=== PATIENT | female | born 1975 | race Caucasian/White ===

== ENCOUNTER 2016-07-23 17:54 | Inpatient (IN) | payer MEDICARE, MEDICAID ==
[~2016-07-23] VITALS: Ht 162.5 cm; Wt 75.5 kg
--- NOTE | ~2016-07-23 | ST ---
[place], [place] EXERCISE STRESS TEST REPORT NAME: MAY CARRILLO [facility] #: [id number] UNIT #: [id number] ROOM: 525 DOCTOR: TARSHA ORR,ANGELA BIRTHDATE: [birth year] DOS: 07/24/2016 EXERCISE NUCLEAR STRESS TEST REASON FOR TEST: Evaluation of chest pain. PHYSICAL EXAMINATION: NECK: Supple. LUNGS: Clear anteriorly. HEART: Regular rhythm. PROTOCOL: Kailash protocol. Total stress time 6 minutes and 16 seconds. Maximum heart rate of 166 is in 92% of target heart rate. Total METs 7.2 METs. Strong treadmill score +6, peak blood pressure 165/88. SYMPTOMS: The patient is chest pain free. EKG: Resting EKG sinus rhythm. Stress EKG showed no ischemia, no arrhythmias. CONCLUSION: Clinically, the patient is chest pain free. EKG nonischemic. POST-STRESS COMPLICATIONS: None. ANGELA WILLINGHAM MD CM:STRESS:EXERCISE STRESS TEST REPORT [id number] ANGELA WILLINGHAM MD
--- NOTE | ~2016-07-23 | CON ---
[place], [place] REPORT OF CONSULTATION NAME: MAY CARRILLO [facility] #: [id number] UNIT #: [id number] ROOM: 525 DOCTOR: ANGELA WILLINGHAM MD BIRTHDATE: [birth year] DOS: 07/24/2016 REASON FOR CONSULTATION: Chest pain. HISTORY OF PRESENT ILLNESS: The patient is a 41-year-old patient with history of hypertension, who presented to the Emergency Room for chest pain. The patient describes this as a sharp chest pain at rest, which was left side of the chest. It started a few hours before she came to the Emergency Room. This pain did radiate to her left arm and also developed some left arm numbness and tingling. She has some shortness of breath and lightheadedness with this chest pain. This pain did not get worse with , but however, this pain became progressive with rest and she tried massage as well as pouring some cold water on her face, which did not help her pain. She came to the Emergency Room, was admitted to the hospital and conformal pad former was consulted for further recommendations. She denies any fever and chills. No nausea, vomiting, or headaches. No fever and chills. No diarrhea or constipation. No hematuria, no dysuria. No cough or hemoptysis. No blurred vision, double vision. No joint tenderness or swelling. REVIEW OF SYSTEMS: Review of the 8 systems negative except as mentioned above. PAST MEDICAL HISTORY: 1. Hypertension. 2. Anxiety. 3. Overweight. 4. Schizophrenia. 5. Bipolar. PAST SURGICAL HISTORY: History of partial hysterectomy, appendicectomy, and tonsillectomy. SOCIAL HISTORY: The patient does drink alcohol occasionally. Does not use illicit drugs and does smoke 1 pack a day. FAMILY HISTORY: Father from heart attack at age of 53. Mother had a stroke at the age of 60. ALLERGIES: No known drug allergies. HOME MEDICATIONS: Reviewed. PHYSICAL EXAMINATION: VITAL SIGNS: Blood pressure 112/68, pulse 73, respiration is 20, and weight is 75.4 kilos. BMI 28.6. GENERAL: Alert, comfortable, in no acute distress. HEENT: Pupils are round and equal. No jaundice. Tongue was moist and pharynx was clear. NECK: Supple. No distended neck veins. No carotid bruit. CHEST: Symmetrical, nontender. LUNGS: Clear to auscultation bilaterally. [place], [place] REPORT OF CON[facility]ULTATION [facility] [id number] UNIT #: [id number] ROOM: [facility] DOCTOR: TARSHA ORR,ANGELA BIRTHDATE: [birth year] HEART: Regular rhythm. No S3. No palpable thrills. ABDOMEN: Benign, nontender. Bowel sounds normal. EXTREMITIES: Showed no edema. Distal pulses are palpable. SKIN: Warm and dry. No cyanosis, no clubbing. NEUROLOGIC: The patient is alert and oriented. No focal neurologic deficit. GENITOURINARY: Deferred. RECTAL: Deferred. REVIEW OF THE DIAGNOSTIC TESTS: EKG rhythm strips and labs reviewed. EKG showed sinus rhythm. No acute ST changes. IMPRESSION: 1. Chest pain, atypical. 2. Mild decreased dyslipidemia. 3. History of hypertension. 4. Mild shortness of breath. 5. Anxiety. 6. Left-sided facial pain, possibly temporomandibular joint syndrome. 7. Tobacco use, smoking. RECOMMENDATIONS: 1. Continue current medication as the patient counseled to quit smoking as well as exercise and weight loss. 2. Treadmill stress test today for evaluation of chest pains and the treadmill is unremarkable. 3. She has no further chest pain. She can be discharged home today. ANGELA WILLINGHAM MD CM:CONSTR:REPORT OF CONSULTATION [id number] 07/25/16 0241 interface
[~2016-07-23 17:54] MED LIST: ADDERALL30 MG PO; AMBIEN10 M1 PO; BUSPIRONE10 MG PO; CATAPRES0.1 MG PO; CELEXA10 MG PO; EFFEXOR XR37.5 M2 PO; EFFEXOR-XR150 MG PO; KLONOPIN1 MG PO; LISINOPRIL10 MG PO; MOTRIN800 MG PO; ULTRAM50 MG PO; VISTARIL25 M1 PO; XANAX1 MG PO
[2016-07-23 18:04] VITALS: BP 147/83
[2016-07-23 18:09] LABS: BASO % 0.5 % (0.0-1.0); EOS # 0.2 10*3/uL (0.0-0.4); HEMOGLOBIN 14.4 g/dl (12.0-16.0); LYMPH # 2.6 10*3/uL (1.3-4.4); LYMPH % 42.3 % (27.0-41.0); MEAN CELL VOLUME 86.7 fl (81.0-99.0); MEAN CORPUSCULAR HGB CONC 33.5 g/dl (33.0-37.0); MONO # 0.3 10*3/uL (0.1-1.0); MONO % 4.3 % (3.0-9.0); NEUT % 49.7 % (47.0-73.0); PLATELET COUNT AUTOMATED 188 10*3/uL (130-400); RED BLOOD COUNT 4.96 10*6/uL (4.10-5.10); RED CELL DISTRI WIDTH 12.8 % (0-14.5); WHITE BLOOD COUNT 6.1 10*3/uL (4.8-10.8)
[2016-07-23 18:20] LABS: INTERNATIONAL NORM RATIO 0.9 (2.0-3.5); PROTHROMBIN TIME 9.8 SECONDS (9.0-12.4)
[2016-07-23 18:28] LABS: ALBUMIN 3.5 gm/dl (3.1-4.5); ALKALINE PHOSPHATASE 70 U/L (45-117); BILIRUBIN, TOTAL 0.4 mg/dl (0.2-1.0); BUN 8 mg/dl (7-24); CARBON DIOXIDE 23 mmol/L (21-32); CHLORIDE 106 mmol/L (98-107); EST GLOM FILT AFRICAN AMERICAN > 60 ml/min; GLUCOSE 97 mg/dL (65-99); MAGNESIUM 2.1 mg/dL (1.5-2.1); POTASSIUM 3.6 mmol/L (3.5-5.1); SGOT/AST 18 IU/L (3-35); SGPT/ALT 23 U/L (12-78); SODIUM 141 mmol/L (136-145); TOTAL PROTEIN 7.3 gm/dL (6.4-8.2)
[2016-07-23 18:29] LABS: TROPONIN I < 0.015 ng/ml (<0.045)
[2016-07-23 19:15] VITALS: BP 123/81
[2016-07-23 19:47] VITALS: BP 126/83
[2016-07-23 20:38] VITALS: BP 122/83
[2016-07-23 21:39] VITALS: BP 128/92
[2016-07-24 00:13] VITALS: BP 131/86
[2016-07-24 00:34] LABS: CKMB < 0.5 ng/ml (0.5-3.6); TROPONIN I < 0.015 ng/ml (<0.045)
[2016-07-24 04:06] VITALS: BP 124/72
[2016-07-24 06:37] LABS: BASO % 0.5 % (0.0-1.0); EOS # 0.2 10*3/uL (0.0-0.4); EOS % 3.6 % (1.0-4.0); HEMATOCRIT 39.9 % (37.0-47.0); HEMOGLOBIN 13.4 g/dl (12.0-16.0); LYMPH # 2.5 10*3/uL (1.3-4.4); LYMPH % 41.2 % (27.0-41.0); MEAN CELL VOLUME 86.9 fl (81.0-99.0); MEAN CORPUSCULAR HGB 29.2 pg (27.0-31.0); MEAN CORPUSCULAR HGB CONC 33.6 g/dl (33.0-37.0); MEAN PLATELET VOLUME 10.1 fl (9.6-12.3); MONO # 0.3 10*3/uL (0.1-1.0); MONO % 4.7 % (3.0-9.0); NEUT % 49.8 % (47.0-73.0); PLATELET COUNT AUTOMATED 174 10*3/uL (130-400); RED BLOOD COUNT 4.59 10*6/uL (4.10-5.10); RED CELL DISTRI WIDTH 12.9 % (0-14.5); WHITE BLOOD COUNT 6.1 10*3/uL (4.8-10.8)
[2016-07-24 06:54] LABS: HEMOGLOBIN A1c 4.7 % (4.8-5.6)
[2016-07-24 07:11] LABS: BUN 8 mg/dl (7-24); CARBON DIOXIDE 27 mmol/L (21-32); CHLORIDE 108 mmol/L (98-107); CHOLESTEROL 164 mg/dL (<200); EST GLOM FILT AFRICAN AMERICAN > 60 ml/min; FREE T4 1.06 ng/dl (0.76-1.46); GLUCOSE 91 mg/dL (65-99); HDL CHOLESTEROL 67 mg/dl (40-60); LDL CHOLESTEROL 77 mg/dL (9-159); MAGNESIUM 2.3 mg/dL (1.5-2.1); PHOSPHOROUS 3.2 mg/dL (2.5-4.9); POTASSIUM 4.3 mmol/L (3.5-5.1); SODIUM 144 mmol/L (136-145); TRIGLYCERIDES 101 mg/dl (<150); VLDL CHOLESTEROL 20 mg/dL (6-40)
[2016-07-24 07:28] LABS: CKMB < 0.5 ng/ml (0.5-3.6); TROPONIN I < 0.015 ng/ml (<0.045)
[2016-07-24 07:34] LABS: VITAMIN D, 25-HYDROXY 12.9 ng/mL (30-100)
[2016-07-24 07:35] LABS: FOLIC ACID 9.05 ng/mL (>5.38)
[2016-07-24 08:00] VITALS: BP 112/68; BP 119/72
[2016-07-24 11:50] VITALS: BP 115/76
== END 2016-07-24 14:20 | disposition home or self-care (01) | DRG 313 ==
LOC: ED 17:54 → EDHOLD 18:59 → 5E 18:59
PROVIDERS: Emergency Medicine; Internal Medicine
DX: R07.89 Other chest pain (principal); E83.41 Hypermagnesemia; I10 Essential (primary) hypertension; F20.9 Schizophrenia, unspecified; F41.9 Anxiety disorder, unspecified; F90.9 Attention-deficit hyperactivity disorder, unspecified type; F31.9 Bipolar disorder, unspecified; E55.9 Vitamin D deficiency, unspecified; F17.210 Nicotine dependence, cigarettes, uncomplicated; Z71.6 Tobacco abuse counseling; E66.3 Overweight; R51 Headache

== ENCOUNTER → 2016-07-28 | Outpatient (CLI) | payer MEDICARE, MEDICAID | END | disposition home or self-care (01) | LOC: RESCLI 02:03 | DX: I10 Essential (primary) hypertension (principal); F41.9 Anxiety disorder, unspecified; F33.9 Major depressive disorder, recurrent, unspecified; Z72.0 Tobacco use ==

== ENCOUNTER 2016-09-12 13:17 | Emergency (ER) | payer MEDICARE, MEDICAID ==
[~2016-09-12] VITALS: Ht 162.5 cm; Wt 74.8 kg
[2016-09-12] MEDS ORDERED: PRINIVIL20 M1 PO (13:32)
[2016-09-12] MEDS ORDERED: EFFEXOR XR37.5 MG PO (13:32)
[2016-09-12] MEDS ORDERED: NAPROSYN500 MG PO (14:01)
[2016-09-12] MEDS ORDERED: AUGMENTIN 875875 MG PO (14:01)
== END 2016-09-12 14:27 | disposition home or self-care (01) ==
LOC: ED 13:17
DX: S41.151A Open bite of right upper arm, initial encounter (principal); S51.851A Open bite of right forearm, initial encounter; L03.113 Cellulitis of right upper limb; F90.9 Attention-deficit hyperactivity disorder, unspecified type; F31.9 Bipolar disorder, unspecified; I10 Essential (primary) hypertension; F20.9 Schizophrenia, unspecified; E55.9 Vitamin D deficiency, unspecified; F17.200 Nicotine dependence, unspecified, uncomplicated; Z90.49 Acquired absence of other specified parts of digestive tract; Z90.711 Acquired absence of uterus with remaining cervical stump; Z79.899 Other long term (current) drug therapy; W54.0XXA Bitten by dog, initial encounter; Y93.89 Activity, other specified; Y92.89 Other specified places as the place of occurrence of the external cause; Y99.9 Unspecified external cause status